=== PATIENT | female | born 1995 | race Caucasian/White ===

== ENCOUNTER 2017-05-13 16:32 | Emergency (ER) | END 2017-05-13 19:15 | disposition home or self-care (01) ==

== ENCOUNTER → 2017-06-15 | Outpatient (CLI) | payer BC, OTHER ==
[~2017-06-15] MED LIST: BENZ100A PO; CEPH500 PO
[2017-06-16 14:29] LABS: Source Vaginal/Cervical
== END | disposition home or self-care (01) ==
LOC: LAB SHORT 11:41 → LAB 11:41
PROVIDERS: Obstetrics & Gynecology
DX: Z36.89 Encounter for other specified antenatal screening (principal)
CPT/HCPCS: 87491; 87591; G0123

== ENCOUNTER → 2017-12-06 | Outpatient (CLI) | payer BC, OTHER ==
[~2017-12-06] MED LIST changes: +ONDA4ODT MM
== END ==
LOC: LAB SHORT 14:44
DX: Z34.00 Encounter for supervision of normal first pregnancy, unspecified trimester (principal)
CPT/HCPCS: 87081; 87653